=== PATIENT | male | born 1970 | race Caucasian/White ===

== ENCOUNTER 2023-11-09 09:35 | Emergency (ER) | payer BC, SELFPAY ==
[2023-11-09 09:36] VITALS: BP 133/86
--- NOTE | 2023-11-09 09:53 | ED.GENMED ---
History of Present Illness
General
Chief Complaint: Skin Surface Trauma
Time Seen by Provider: 11/09/23 09:47
History of Present Illness
History of Present Illness:
53-year-old male presents the emergency department for evaluation of a left index finger laceration, sustained an injury while working with hedge clippers. Last tetanus is up-to-date. Bleeding controlled not on anticoagulant
Past History
Past History
ED Past Medical History: None
ED Past Surgical History: Appendectomy and Orthopedic
Social History
Tobacco: Non-smoker
Alcohol: Occasional
Drug: None
Personal:
Living: with family
Employment: Employed
Family History
Family History: CAD (Grandfather)
Review of Systems
Review of Systems
Allergies reviewed?: Yes
All Other Systems: ROS reviewed and negative except as documented in HPI and ROS
Phy Exam
Physical Exam
Physical Exam:
GEN: Well appearing, NAD, WDWN
HEENT: Oral mucosa moist, no scleral icterus
Cardiac: Regular rate
Lung: No respiratory distress, no tachypnea
MSK: No gross deformity or injuries. 1 cm laceration to the left distal index finger from the distal tip extending through the lateral nail, no active bleeding
Skin: Good color, no pallor or jaundice, no rashes
Neuro: AO x3, moves all extremities freely
Psych: Calm, cooperative
Course
Orders/Labs/Results
Orders:
Orders
11/09/23 09:53
CR Finger(s)/thumb Min 2 Vw Lt Urgent
Comment:
Reason For Exam: L index lac
Vital Signs
Initial and Last Documented VS:
Initial Vital Signs
Temp Pulse Resp BP Pulse Ox
97.9 F 79 16 133/86 95
11/09/23 09:36 11/09/23 09:36 11/09/23 09:36 11/09/23 09:36 11/09/23 09:36
Last Documented Vital Signs
Temp Pulse Resp BP Pulse Ox
97.9 F 79 16 133/86 95
11/09/23 09:36 11/09/23 09:36 11/09/23 09:36 11/09/23 09:36 11/09/23 09:36
Procedures
Laceration Closure
Left Second Finger:
Status of Wound: clean
Size of Wound in cm: 1
Description of Wound Edges: sharp
Preparation: cleaned with saline
Anesthesia: 1% Lidocaine
Wound exploration: explored to base- no FB
Type of Closure: single layer closure and mattress sutures
Skin Closure Material: 5-0 prolene
Number of sutures: 3
MDM/Problems Addressed
MDM/Problems Addressed:
No evidence of foreign body or fracture on finger x-rays. Discussed supportive care, sutured wound
*Critical Care Note
Total Time (30-74mins, 75-104mins- exclusive of procedures): Not Applicable
ED Attending Note
-
Portions of this chart may have been created with voice recognition software.� Occasional wrong word or��sound alike� substitutions may have occurred due to the inherent limitations of voice recognition software.
Discharge Plan
Departure
Patient Disposition: Home (Routine Discharge)
Date of Disposition: 11/09/23
Time of Disposition: 11:24
Patient with high blood pressure during this ER visit?: No
Discharge Problem:
Laceration of left index finger
Instructions: Laceration Repair With Stitches (DC)
Prescriptions:
No Action
prednisone 10 MG tablet
30 mg PO BID
indomethacin 50 MG capsule
50 mg PO TID Qty: 12 0RF
sulfamethoxazole-trimethoprim 1 TABLET tablet
1 tab PO BID Qty: 14 0RF
cephalexin 500 MG capsule
500 mg PO BID Qty: 14 0RF
febuxostat 40 mg Tablet
40 mg PO DAILY
amoxicillin-pot clavulanate 875-125 mg tablet
1 tab PO BID Qty: 14 0RF
Referrals:
Fernando Elise MD [Family Provider] -
Activity Restrictions/Additional Instructions:
Keep dry for 24 hours then you may wash gently with soap and water
Your three sutures need to be removed in 7-10 days
Interventions
Interventions:
*General Assessment Last Done: 11/09/23 09:36
ED- Fall Risk Assessment Last Done: 11/09/23 09:41
*ED COVID-19 Vaccine History Last Done: 11/09/23 09:36
*Nursing Disposition Last Done: 11/09/23 11:48
ED-Skin Assessment Last Done: 11/09/23 09:41
Discharge Date and Time
Discharge Date/Time: 11/09/23 11:48
Print Language: PASHTO
== END 2023-11-09 11:48 | disposition home or self-care (01) ==
LOC: EMR 09:35
PROVIDERS: EMERGENCY PHYSICIAN Emergency Medicine; FAMILY PHYSICIAN Family Medicine
DX: S61.211A Laceration without foreign body of left index finger without damage to nail, initial encounter (principal); W29.3XXA Contact with powered garden and outdoor hand tools and machinery, initial encounter
CPT/HCPCS: 99283; 12001; 73140